=== PATIENT | female | born 1985 | race Caucasian/White ===

== ENCOUNTER 2018-03-03 10:36 | Inpatient (IN) | payer BC ==
[2018-03-03] MEDS ORDERED: SODIUM CHLORIDE 0.9% 1000ML 1,000 ML IV ONE (11:42)
[2018-03-03 11:52] LABS: APPEARANCE,URINE Clear; BILIRUBIN,URINE NEGATIVE (NEGATIVE); COLOR,URINE Light yellow; GLUCOSE, URINE (UA) NEGATIVE (NEGATIVE); KETONES,URINE NEGATIVE (NEGATIVE); LEUKOCYTE ESTERASE ,URINE NEGATIVE (NEGATIVE); NITRATE,URINE NEGATIVE (NEGATIVE); OCCULT BLOOD,URINE NEGATIVE (NEG-TRACE); UROBILINOGEN,URINE 0.2 (0.2-1.0 EU)
[2018-03-03 12:22] LABS: BACTERIA TRACE (< 1+); CRYSTALS NEGATIVE (0-3 AVE/HPF); EPITHELIAL CELLS 0-4 (SQUAMOUS); RBC,URINE NEG (0-3AV/HPF); WBC,URINE 0-1 (0-5AV/HPF)
[2018-03-03] MEDS ORDERED: CARBOPROST 250 MCG/ML SOL IM PRN (13:19)
[2018-03-03] MEDS ORDERED: OXYTOCIN 10000 MU/ML SOL IM PRN (13:19)
[2018-03-03] MEDS ORDERED: LACTATED RINGERS 1,000 ML IV PRN (13:19)
[2018-03-03] MEDS ORDERED: METHYLERGONOVINE MALEATE 0.2 MG/ML SOL IM PRN (13:19)
[2018-03-03] MEDS ORDERED: FENTANYL 100MCG/2ML SOL IV PRN (13:19)
[2018-03-03] MEDS ORDERED: MEPIVACAINE HCL 1% MPF 30 ML/VIAL SOL INFIL PRN (13:19)
[2018-03-03] MEDS ORDERED: SODIUM CHLORIDE 0.9% 50 ML 25 ML IV PRN (13:19)
[2018-03-03] MEDS ORDERED: SODIUM CHLORIDE 0.9% FLUSH 10 ML SOL IV PRN (13:19)
[2018-03-03 13:53] LABS: BASOPHILS % (AUTO) 1 % (0-3); EOSINOPHILS % (AUTO) 2 % (0-9); HEMATOCRIT 36 % (35-47); HEMOGLOBIN 11.7 gm/dl (12.0-15.5); LYMPHOCYTES % (AUTO) 23.6 % (10-50); MEAN CORPUSCULAR HEMOGLOBIN 27.8 pg (27.0-32.0); MEAN CORPUSCULAR HGB CONC 32.8 gm/dl (32.0-36.0); MEAN CORPUSCULAR VOLUME 85 fL (81-99); MONOCYTES % (AUTO) 8.9 % (0-12); NEUTROPHILS % (AUTO) 64.5 % (37-80)
[2018-03-03] MEDS ORDERED: VANCOMYCIN HYDROCHLORIDE 500 MG PDS IV ONE (14:14)
[2018-03-03] MEDS: VANCOMYCIN HCL 500 MG PDS 1,000 MG in SODIUM CHLORIDE 0.9% 250 ML 250 ML IV SCH (14:30)
[2018-03-03] MEDS: SODIUM CHLORIDE 0.9% FLUSH 10 ML SOL IV SCH ×2 (14:32→21:30)
[2018-03-03] MEDS ORDERED: NALOXONE HYDROCHLORIDE 0.4 MG/ML SOL IV PRN (17:11)
[2018-03-03] MEDS ORDERED: EPHEDRINE SULFATE 50 MG/ML SOL IV PRN (17:11)
[2018-03-03] MEDS ORDERED: NALBUPHINE HCL 20 MG/ML SOL IV PRN (17:11)
[2018-03-03] MEDS ORDERED: DIPHENHYDRAMINE 50 MG/ML SOL IV PRN (17:11)
[2018-03-03] MEDS: LACTATED RINGERS 1,000 ML IV SCH ×3 (17:15→19:17)
[2018-03-03] MEDS ORDERED: LIDOCAINE HCL 2% MPF 10 ML SOL ONE (18:12)
[2018-03-03] MEDS ORDERED: FENTANYL 250 MCG/ 5ML SOL ONE (18:12)
[2018-03-03] MEDS ORDERED: ROPIVACAINE HYDROCHLORIDE 5 MG/ML SOL ONE (18:13)
[2018-03-03] MEDS ORDERED: WITCH HAZEL 1 EA PAD TOP PRN (23:58)
[2018-03-03] MEDS ORDERED: BENZOCAINE/MENTHOL 1 SPR TOP PRN (23:58)
[2018-03-03] MEDS ORDERED: FLEET ENEMA PR PRN (23:58)
[2018-03-03] MEDS ORDERED: METHYLERGONOVINE MALEATE 0.2 MG TAB PO PRN (23:58)
[2018-03-03] MEDS ORDERED: BISACODYL 10 MG SUP PR PRN (23:58)
[2018-03-03] MEDS ORDERED: TEMAZEPAM 15MG 15 MG CAP PO PRN (23:58)
[2018-03-04] MEDS: IBUPROFEN 600 MG TAB PO PRN ×3 (02:17→19:21)
[2018-03-04] MEDS: APAP/HYDROCODONE 1 EACH TABLET PO PRN ×3 (03:08→23:13)
[2018-03-04] MEDS: SODIUM CHLORIDE 0.9% FLUSH 10 ML SOL IV SCH ×3 (03:22→14:29)
[2018-03-04] MEDS: VANCOMYCIN HCL 500 MG PDS 1,000 MG in SODIUM CHLORIDE 0.9% 250 ML 250 ML IV SCH (07:41)
[2018-03-04] MEDS: LACTATED RINGERS 1,000 ML IV SCH (07:42)
[2018-03-04] MEDS ORDERED: FOLIC ACID 1 MG TAB ONE (08:53)
[2018-03-04] MEDS ORDERED: MULTIVITAMIN2 1 EA TAB ONE (08:53)
[2018-03-04] MEDS: MULTIVITAMIN2 1 EA TAB PO SCH (08:57)
[2018-03-04] MEDS: DOCUSATE SODIUM 100 MG SGL PO SCH ×2 (08:57→21:03)
[2018-03-04] MEDS: FOLIC ACID 1 MG TAB PO SCH (08:57)
[2018-03-04 23:19] VITALS: RESP 16
[2018-03-05] MEDS: IBUPROFEN 600 MG TAB PO PRN ×2 (06:59→16:40)
[2018-03-05] MEDS: MULTIVITAMIN2 1 EA TAB PO SCH (10:32)
[2018-03-05] MEDS: FOLIC ACID 1 MG TAB PO SCH (10:32)
[2018-03-05] MEDS: DOCUSATE SODIUM 100 MG SGL PO SCH (10:32)
[2018-03-05 16:40] VITALS: BP 114/79; PULSE 76; TEMP 97.4; O2SAT 98
== END 2018-03-05 19:40 | disposition home or self-care (01) | DRG 560 ==
LOC: OBOP 10:41 → OB 12:15 → OBSVTOIN 12:15 → EDSTATUS 12:34
PROVIDERS: ADMIT Family Medicine; ATTEND Family Medicine
PROC: 10E0XZZ Delivery of Products of Conception, External Approach (ICD-10-PCS; principal; 2018-03-03)
PROC: 3E04329 Introduction of Other Anti-infective into Central Vein, Percutaneous Approach (ICD-10-PCS; 2018-03-03)
PROC: 10907ZC Drainage of Amniotic Fluid, Therapeutic from Products of Conception, Via Natural or Artificial Opening (ICD-10-PCS; 2018-03-03)
PROC: 0HQ9XZZ Repair Perineum Skin, External Approach (ICD-10-PCS; 2018-03-03)
DX: O80 Encounter for full-term uncomplicated delivery (principal); O99.824 Streptococcus B carrier state complicating childbirth; Z37.0 Single live birth; Z3A.40 40 weeks gestation of pregnancy
CPT/HCPCS: 36415; 59025; 81001; 85018; 85025; J0670; J2590; J2795; J3010; J3370; A9270-GY; J2001